=== PATIENT | male | born 2000 ===

== ENCOUNTER 2020-02-27 15:37 | Outpatient (CLI) | payer SELFPAY ==
--- NOTE | 2020-02-27 15:55 | XR_ITS ---
WS: [id number] LEFT HAND: 3 VIEW(S) TECHNIQUE: PA, oblique and lateral. HISTORY: HAND PAIN, LEFT COMPARISON: None available. No acute fracture or dislocation. No soft tissue or bone abnormality. XR/XR hand LT min 3V* [id number] IMPRESSION: Normal LEFT hand.
== END 2020-02-27 15:38 | disposition home or self-care (01) ==
LOC: RADWPI 15:43
PROVIDERS: PCP Nurse Practitioner Family; Visit Provider Nurse Practitioner Family
DX: M79.642 Pain in left hand (principal)
CPT/HCPCS: 73130